=== PATIENT | female | born 1960 | race African-American/Black ===

== ENCOUNTER 2025-09-12 09:49 | Inpatient (IN) | payer OTHER, MEDICAID ==
[~2025-09-12] VITALS: Ht 167.6 cm; Wt 163.4 kg
[2025-09-12] VITALS (10 sets, daily range): BP systolic 117–159; BP diastolic 64–88; PULSE 86–107; RESP 16–20; TEMP 97.6–98.3; O2SAT 93–100
[2025-09-12] MEDS: methylPREDNISolone SOD SUCC 125 MG/2 ML VL IV ONE (10:15)
[2025-09-12] MEDS: MAGNESIUM SULFATE 1GM/100ML 100 ML IV ONE (10:15)
[2025-09-12] MEDS: FUROSEMIDE 40 MG/4 ML VIAL IV ONE (10:15)
--- NOTE | 2025-09-12 10:19 | ED.PDOC ---
History of Present Illness HPI Comments 64-year-old female came to the ER stating that she has been having shortness a breath for the past few weeks progressively getting worse. States that she can not even lie down without being short of breath. She does have a history of bilateral lower extremity swelling for which she takes Lasix. Apart from the swelling of her extremities she does have high blood pressure diabetes asthma. She has been using her inhaler without any help. Blood pressure on arrival was systolic blood pressure 220 with a heart rate of 106 saturation 91% on room air. She was placed on oxygen. Denies chest pain. Denies any other symptoms. 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 History Social History Smoker: Non-Smoker Alcohol: Denies ETOH Use Drugs: Denies Drug Use Constitutional: denies: chills, diaphoresis, fatigue, fever, malaise, sweats, weakness, others EENTM: denies: blurred vision, double vision, ear bleeding, ear discharge, ear drainage, ear pain, ear ringing, eye pain, eye redness, hearing loss, mouth pain, mouth swelling, nasal discharge, nose bleeding, nose congestion, nose pain, photophobia, tearing, throat pain, throat swelling, voice changes, others Respiratory: reports: shortness of breath; denies: cough, hemoptysis, orthopnea, SOB at rest, SOB with excertion, stridor, wheezing, others Cardiovascular: denies: chest pain, dizzy spells, diaphoresis, Dyspnea on exertion, edema, irregular heart beat, left arm pain, lightheadedness, palpitations, PND, syncope, others Gastrointestinal: denies: abdomen distended, abdominal pain, blood streaked bowels, constipated, diarrhea, dysphagia, difficulty swallowing, hematemesis, melena, nausea, poor appetite, poor fluid intake, rectal bleeding, rectal pain, vomiting, others Genitourinary: denies: abnormal vagina bleeding, burning, dyspareunia, dysuria, flank pain, frequency, hematuria, incontinence, pain, , vagina discharge, urgency, others Neurological: denies: dizziness, fainting, headache, left sided numbness, left sided weakness, numbness, paresthesia, pre-existing deficit, right sided numbness, right sided weakness, seizure, speech problems, tingling, tremors, weakness, others Musculoskeletal: denies: back pain, gout, joint pain, joint swelling, muscle pain, muscle stiffness, neck pain, others Integumetry: denies: bruises, change in color, change in hair/nails, dryness, laceration, lesions, lumps, rash, wounds, others Allergic/Immunocompromised: denies: Difficulty Healing, Frequent Infections, Hives, Itching, others Hematologic/Lymphatic: denies: anemia, blood clots, easy bleeding, easy bruising, swollen glands, others Endocrine: denies: excessive hunger, excessive sweating, excessive thirst, excessive urination, flushing, intolerance to cold, intolerance to heat, unexplained weight gain, unexplained weight loss, others Psychiatric: denies: anxiety, bipolar disorder, depression, hopeless, panic disorder, schizophrenia, sleepless, suicidal, others Physical Exam General Appearance: Normal, Severe Distress HEENT: Normal ENT Inspection, Pharynx Normal, TMs Normal Neck: Full Range of Motion, Non-Tender, Normal, Normal Inspection Respiratory: Accessory Muscle Use, Respiratory Distress, Wheezing Cardiovascular: Tachycardia Breast Exam: Deferred Gastrointestinal: No Organomegaly, Non Tender, No Pulsatile Mass, Normal Bowel Sounds, Soft Genitalia: Deferred Pelvic: Deferred Rectal: Deferred Extremities: No calf tenderness, Pedal edema, Swelling (Bilateral lower extremity) Musculoskeletal : Apperance: Normal Neurologic: Alert, vice president lending II-XII nml as Tested, No Motor Deficits, Normal Affect, Normal Mood, No Sensory Deficits Cerebellar Function: NOT DONE Reflexes: NOT DONE Skin: Normal Color Peripheral Pulses: 3+ Radial (R), 3+ Radial (L) Lymphatic: No Adenopathy Was a procedure done? Was a procedure done?: No EKG EKG : Pulse Rate (adult): 99 Cardiac Rhythm: NSR Differential Dx Considerations may include: Asthma exacerbation Electrolyte imbalance X-Ray, Labs, Meds, VS Vital Signs Date Time Temp Pulse Resp B/P (MAP) Pulse Ox O2 Delivery O2 Flow Rate FiO2 09/12/25 10:41 101 15 164/89 (114) 93 11/28/25 10:41 99 16 93 Nasal Cannula* 3 32 09/12/25 10:35 20 96 Nasal Cannula* 3 32 09/12/25 10:20 99 09/12/25 10:15 158/70 09/12/25 10:13 99 09/12/25 09:53 97.9 119 24 220/121 86 97.9 Lab Test 09/12/25 12:05 09/12/25 10:05 Range/Units Lactic Acid Level 1.7 2.7 *H 0.4-2.0 mmol/L White Blood Count 7.0 4.4-10.8 10^3/uL Red Blood Count 5.53 H 4.0-5.20 10^6/uL Hemoglobin 12.6 12.2-16.2 g/dL Hematocrit 40.7 36.0-46.0 % Mean Corpuscular Volume 73.6 L 80.0-100.0 fL Mean Corpuscular Hemoglobin 22.8 L 28.0-32.0 pg Mean Corpuscular Hemoglobin Concent 31.0 L 32.0-36.0 g/dL Red Cell Distribution Width 17.1 H 11.8-14.3 % Platelet Count 246 140-450 10^3/uL Mean Platelet Volume 8.2 6.9-10.8 fL Neutrophils (%) (Auto) 63.0 37.0-80.0 % Lymphocytes (%) (Auto) 28.1 10.0-50.0 % Monocytes (%) (Auto) 4.6 0.0-12.0 % Eosinophils (%) (Auto) 3.8 0.0-7.0 % Basophils (%) (Auto) 0.5 0.0-2.0 % Neutrophils # (Auto) 4.4 1.6-8.6 10 ^3/uL Lymphocytes # (Auto) 2.0 0.4-5.4 10 ^3/uL Monocytes # (Auto) 0.3 0-1.3 10 ^3/uL Eosinophils # (Auto) 0.3 0-0.8 10 ^3/uL Basophils # (Auto) 0 0-0.2 10 ^3/uL Nucleated Red Blood Cells 0.1 % Sodium Level 145 136-145 mmol/L Potassium Level 3.9 3.5-5.1 mmol/L Chloride Level 105 98-107 mmol/L Carbon Dioxide Level 30 20-31 mmol/L Anion Gap 10 5-15 Blood Urea Nitrogen 13 9-23 mg/dL Creatinine 0.77 0.550-1.02 mg/dL Glomerular Filtration Rate Calc 86 >90 mL/min BUN/Creatinine Ratio 16.9 10.0-20.0 Serum Glucose 146 H 74-106 mg/dL Calcium Level 9.4 8.7-10.4 mg/dL Total Bilirubin 0.4 0.2-1.0 mg/dL Aspartate Amino Transferase (AST) 26 13-40 U/L Alanine Aminotransferase (ALT) 24 7-40 U/L Alkaline Phosphatase 201 H 46-116 U/L Troponin I High Sensitivity 11 </=34 ng/L Total Protein 7.6 5.7-8.2 g/dL Albumin 4.4 3.2-4.8 g/dL Current Medications Medications (Trade) Dose Ordered Sig/Kera Route Start Time Stop Time Status Last Admin Methylprednisolone Sodium Succinate (Solu Medrol) 125 mg ONCE ONCE IV 09/12/25 10:15 09/12/25 10:16 DC 09/12/25 10:15 Albuterol (Ventolin Medneb) 5 mg ONCE ONCE NEB 09/12/25 10:15 09/12/25 10:16 DC 09/12/25 10:34 Ipratropium [place] (Atrovent Medneb) 0.5 mg ONCE ONCE NEB 09/12/25 10:15 09/12/25 10:16 DC 09/12/25 10:34 Furosemide (Lasix Injection) 40 mg ONCE ONCE IV 09/12/25 10:15 09/12/25 10:16 DC 09/12/25 10:15 Magnesium Sulfate/ Dextrose 100 ml @ 100 mls/hr ONCE ONCE IV 09/12/25 10:15 09/12/25 11:14 DC 09/12/25 10:15 Ceftriaxone Sodium 50 ml @ 100 mls/hr ONCE ONCE IV 09/12/25 11:30 09/12/25 11:59 DC 09/12/25 11:48 Azithromycin 250 ml @ 125 mls/hr ONCE ONCE IV 09/12/25 11:30 09/12/25 13:29 09/12/25 11:48 Patient alert. Complaining of shortness a breath. Vitals stable. Answering questions. Blood pressure elevated. Was given steroid. Was given Lasix. Placed on oxygen. Continue monitoring. Time of 1ST Reevaluation: 10:17 Reevaluation 1ST: Unchanged Patient Education/Counseling: Diagnosis, Treatment, Prognosis Family Education/Counseling: No Family Present SEPSIS Sepsis Screen Date sepsis recognized/suspect: Sep 12, 2025 Time Sepsis recognized/suspect: 954 Recent Procedure: No On Antibiotic Therapy: No Respiratory Rate >20: Yes Heart Rate >90: Yes Temp<36 C (96.8 F) or >38.3 C: No SBP <90 or MAP <65 mmHG: No New Acute Mental Status Change: No Is the patient on CPAP, BIPAP,: No Physician Orders Chest Portable (09/12/25 09:57) Electrocardigram (09/12/25 09:57) Blood Culture (09/12/25 09:57) Urinalysis (09/12/25 09:57) Azithromycin 500mg/250ml (Zithromax 500m (09/12/25 11:30) Vital Signs Date Time Temp Pulse Resp B/P (MAP) Pulse Ox O2 Delivery O2 Flow Rate FiO2 09/12/25 10:41 101 15 164/89 (114) 93 09/12/25 10:41 99 16 93 Nasal Cannula* 3 32 09/12/25 10:35 20 96 Nasal Cannula* 3 32 09/12/25 10:20 99 09/12/25 10:15 158/70 09/12/25 10:13 99 09/12/25 09:53 97.9 119 24 220/121 86 97.9 Laboratory Tests Test 09/12/25 10:05 09/12/25 12:05 Lactic Acid Level 2.7 mmol/L (0.4-2.0) *H 1.7 mmol/L (0.4-2.0) White Blood Count 7.0 10^3/uL (4.4-10.8) Medications Medications Dose Ordered Sig/Kera Route Start Time Stop Time Status Last Admin Dose Admin Albuterol 5 mg ONCE ONCE NEB 09/12/25 10:15 09/12/25 10:16 DC 09/12/25 10:34 Azithromycin 250 ml @ 125 mls/hr ONCE ONCE IV 09/12/25 11:30 09/12/25 13:29 09/12/25 11:48 Ceftriaxone Sodium 50 ml @ 100 mls/hr ONCE ONCE IV 09/12/25 11:30 09/12/25 11:59 DC 09/12/25 11:48 Furosemide 40 mg ONCE ONCE IV 09/12/25 10:15 09/12/25 10:16 DC 09/12/25 10:15 Ipratropium [place] 0.5 mg ONCE ONCE NEB 09/12/25 10:15 09/12/25 10:16 DC 09/12/25 10:34 Magnesium Sulfate/ Dextrose 100 ml @ 100 mls/hr ONCE ONCE IV 09/12/25 10:15 09/12/25 11:14 DC 09/12/25 10:15 Methylprednisolone Sodium Succinate 125 mg ONCE ONCE IV 09/12/25 10:15 09/12/25 10:16 DC 09/12/25 10:15 Departure 1 Departure Time of Disposition: 10:18 Impression: Primary Impression: Acute respiratory failure Qualified Codes: J96.01 - Acute respiratory failure with hypoxia Additional Impressions: Asthma exacerbation Qualified Codes: J45.901 - Unspecified asthma with (acute) exacerbation Hypertensive emergency Disposition: 09 ADMITTED INPATIENT Admit to: ICU Condition: Guarded Critical Care Note Critical Care Time?: Yes (90 min-critical care time only) Stability Stability form required: No Heart Score Heart Score: Heart Score Response (Comments) Value History Slightly Suspicious 0 EKG Normal 0 Age >65 2 Risk Factors >3 or Hx ASHD 2 Troponin Normal limit 0 Total 4 ORESTES DAWN MD Sep 12, 2025 10:19
[2025-09-12] MEDS: LABETALOL HCL 20 MG/4 ML VL IV ONE (10:30)
[2025-09-12] MEDS: IPRATROPIUM BROM 0.5 MG/2.5ML INH SOL NEB ONE (10:34)
[2025-09-12] MEDS: ALBUTEROL SULF 2.5 MG/0.5ML(0.5%) NEB SOLN NEB ONE (10:34)
[2025-09-12 10:39] LABS: Hematocrit 40.7 % (36.0-46.0); Hemoglobin 12.6 g/dL (12.2-16.2); Mean Corpuscular Hemoglobin 22.8 pg (28.0-32.0); Mean Corpuscular Volume 73.6 fL (80.0-100.0); Nucleated Red Blood Cells % 0.1 %
--- NOTE | 2025-09-12 10:47 | DVH ---
EXAM: XY CHEST PORTABLE Indication: shortness of breath Technique: Single frontal view of the chest was obtained Comparison: CR CHEST 2 VIEW on DOS: 10/04/24 FINDINGS: Lines and Tubes: None Lungs: Trace bilateral pleural effusions and pulmonary vascular congestion No pneumothorax. Cardiomediastinal contours: Cardiomegaly. Bones: No acute osseous abnormality. IMPRESSION: Cardiomegaly with trace bilateral pleural effusions and pulmonary vascular congestion.
[2025-09-12 11:10] LABS: Alanine Aminotransferase 24 U/L (7-40); Albumin 4.4 g/dL (3.2-4.8); Anion Gap 10 (5-15); BUN/Creatinine Ratio 16.9 (10.0-20.0); Blood Urea Nitrogen 13 mg/dL (9-23); Calcium 9.4 mg/dL (8.7-10.4); Carbon Dioxide 30 mmol/L (20-31); Chloride 105 mmol/L (98-107); Potassium 3.9 mmol/L (3.5-5.1); Sodium 145 mmol/L (136-145); Total Protein 7.6 g/dL (5.7-8.2)
[2025-09-12 11:11] LABS: Bilirubin, Total 0.4 mg/dL (0.2-1.0)
[2025-09-12 11:19] LABS: Alkaline Phosphatase 201 U/L (46-116); Glucose 146 mg/dL (74-106)
[2025-09-12 11:23] LABS: Lactic Acid w/Reflex 2.7 mmol/L (0.4-2.0)
[2025-09-12] MEDS: AZITHROMYCIN 500MG/250ML 250 ML IV ONE (11:48)
[2025-09-12] MEDS ORDERED: ONDANSETRON HCL 4 MG/2 ML VIAL IV PRN (15:00)
[2025-09-12] MEDS ORDERED: NITROGLYCERIN 0.4 MG SL TAB SL PRN (15:00)
[2025-09-12] MEDS ORDERED: HYDROcodone-ACET 5/325MG TAB PO PRN (15:00)
[2025-09-12] MEDS: methylPREDNISolone SOD SUCC 40 MG/ML VL IV SCH (15:00)
--- NOTE | 2025-09-12 15:10 | DVHHP2 ---
History of Present Illness Reason for Visit: Shortness of breaths since August 24. History of Present Illness 64-year-old female with a known history of chronic asthma, hypertension, congestive heart failure, diabetes mellitus type 2 currently on insulin pump, morbid obesity classIII presented to the hospital with a increasing shortness a breath found to have suspected acute as S1 exacerbation. Patient's denies any fevers chills cough or phlegm. Also complaining some leg swelling. Patient denies any chest pain. Cardiovascular: CHF, HTN, hyperipidemia Pulmonary: Asthma Endocrine: Diabetes Past Surgical History: None Smoke: No ALCOHOL: none Review of Systems Review of Systems Twelve review of system are negative besides mentioned above. Allergies: Coded Allergies: NO KNOWN ALLERGIES (Unverified , 09/12/25) Medications Current Medications Medications Dose Ordered Sig/Kera Route Start Time Stop Time Status Last Admin Dose Admin Acetaminophen/ Hydrocodone Bitart 1 tab Q4HP PRN PO 09/12/25 15:00 UNV Ondansetron HCl 4 mg Q4HP PRN IV 09/12/25 15:00 UNV Enoxaparin Sodium 40 mg DAILY SC 09/13/25 10:00 UNV Acetaminophen 650 mg Q6HP PRN PO 09/12/25 15:00 UNV Morphine Sulfate 2 mg Q4HPRN PRN IV 09/12/25 15:00 UNV Nitroglycerin 0.4 mg Q5MINP PRN SL 09/12/25 15:00 UNV Morphine Sulfate 2 mg Q30M PRN IV 09/12/25 15:00 UNV Albuterol 2.5 mg Q4HR NEB 09/12/25 18:00 UNV Methylprednisolone Sodium Succinate 40 mg Q8HR IV 09/12/25 15:00 UNV Exam Vital Signs Vital Signs Date Time Temp Pulse Resp B/P (MAP) Pulse Ox O2 Delivery O2 Flow Rate FiO2 09/12/25 15:04 87 20 158/55 (89) 93 09/12/25 10:41 Nasal Cannula* 3 32 09/12/25 09:53 97.9 97.9 Exam HEENT pupils are reactive Neck is supple CV is S1-S2 regular rate and rhythm Respiratory bilateral expiratory rhonchi GI positive bowel sound 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 Labs/Xrays Labs Test 09/12/25 12:05 09/12/25 10:05 Range/Units Lactic Acid Level 1.7 0.4-2.0 mmol/L White Blood Count 7.0 4.4-10.8 10^3/uL Red Blood Count 5.53 H 4.0-5.20 10^6/uL Hemoglobin 12.6 12.2-16.2 g/dL Hematocrit 40.7 36.0-46.0 % Mean Corpuscular Volume 73.6 L 80.0-100.0 fL Mean Corpuscular Hemoglobin 22.8 L 28.0-32.0 pg Mean Corpuscular Hemoglobin Concent 31.0 L 32.0-36.0 g/dL Red Cell Distribution Width 17.1 H 11.8-14.3 % Platelet Count 246 140-450 10^3/uL Mean Platelet Volume 8.2 6.9-10.8 fL Neutrophils (%) (Auto) 63.0 37.0-80.0 % Lymphocytes (%) (Auto) 28.1 10.0-50.0 % Monocytes (%) (Auto) 4.6 0.0-12.0 % Eosinophils (%) (Auto) 3.8 0.0-7.0 % Basophils (%) (Auto) 0.5 0.0-2.0 % Neutrophils # (Auto) 4.4 1.6-8.6 10 ^3/uL Lymphocytes # (Auto) 2.0 0.4-5.4 10 ^3/uL Monocytes # (Auto) 0.3 0-1.3 10 ^3/uL Eosinophils # (Auto) 0.3 0-0.8 10 ^3/uL Basophils # (Auto) 0 0-0.2 10 ^3/uL Nucleated Red Blood Cells 0.1 % Sodium Level 145 136-145 mmol/L Potassium Level 3.9 3.5-5.1 mmol/L Chloride Level 105 98-107 mmol/L Carbon Dioxide Level 30 20-31 mmol/L Anion Gap 10 5-15 Blood Urea Nitrogen 13 9-23 mg/dL Creatinine 0.77 0.550-1.02 mg/dL Glomerular Filtration Rate Calc 86 >90 mL/min BUN/Creatinine Ratio 16.9 10.0-20.0 Serum Glucose 146 H 74-106 mg/dL Calcium Level 9.4 8.7-10.4 mg/dL Total Bilirubin 0.4 0.2-1.0 mg/dL Aspartate Amino Transferase (AST) 26 13-40 U/L Alanine Aminotransferase (ALT) 24 7-40 U/L Alkaline Phosphatase 201 H 46-116 U/L Troponin I High Sensitivity 11 </=34 ng/L Total Protein 7.6 5.7-8.2 g/dL Albumin 4.4 3.2-4.8 g/dL SEPSIS Sepsis Screen Date sepsis recognized/suspect: Sep 12, 2025 Time Sepsis recognized/suspect: 954 Recent Procedure: No On Antibiotic Therapy: No Respiratory Rate >20: Yes Heart Rate >90: Yes Temp<36 C (96.8 F) or >38.3 C: No SBP <90 or MAP <65 mmHG: No New Acute Mental Status Change: No Is the patient on CPAP, BIPAP,: No Physician Orders Chest Portable (09/12/25 09:57) Electrocardigram (09/12/25 09:57) Blood Culture (09/12/25 09:57) Urinalysis (09/12/25 09:57) Admit (09/12/25 14:52) Code Status (09/12/25 14:52) 2 Gm Sodium Diet (09/12/25 Dinner) Hydrocodone-Acet 5/325mg Tab ([place] 5/32 (09/12/25 15:00) Ondansetron Hcl (Zofran) (09/12/25 15:00) Enoxaparin Sodium (Lovenox) (09/13/25 10:00) Condition: Stable (09/12/25 14:52) Acetaminophen Tablet (Tylenol Tablet) (09/12/25 15:00) Morphine Sulfate Injection (09/12/25 15:00) Nitroglycerin Sublingual (Ntrostat Subli (09/12/25 15:00) Morphine Sulfate Injection (09/12/25 15:00) Stat Ekg For Chest Pain (09/12/25 14:52) Notify Md Of Changes From Base (09/12/25 14:52) Financial Service Rep For 24 Hours (09/12/25 14:52) Emergency Dysrhythmia Protocol (09/12/25 14:52) Rhythm Strips Once Every Shift (09/12/25 14:52) Oxygen By Nasal Cannula (09/12/25 14:52) Albuterol Medneb (Ventolin Medneb) (09/12/25 18:00) Methylprednisolone Sod Succ (Solu Medrol (09/12/25 15:00) Vital Signs Date Time Temp Pulse Resp B/P (MAP) Pulse Ox O2 Delivery O2 Flow Rate FiO2 09/12/25 15:04 87 20 158/55 (89) 93 09/12/25 10:41 101 15 164/89 (114) 93 09/12/25 10:41 99 16 93 Nasal Cannula* 3 32 09/12/25 10:35 20 96 Nasal Cannula* 3 32 09/12/25 10:20 99 09/12/25 10:15 158/70 09/12/25 10:13 99 09/12/25 09:53 97.9 119 24 220/121 86 97.9 Laboratory Tests Test 09/12/25 10:05 09/12/25 12:05 Lactic Acid Level 2.7 mmol/L (0.4-2.0) *H 1.7 mmol/L (0.4-2.0) White Blood Count 7.0 10^3/uL (4.4-10.8) Medications Medications Dose Ordered Sig/Kera Route Start Time Stop Time Status Last Admin Dose Admin Albuterol 5 mg ONCE ONCE NEB 09/12/25 10:15 09/12/25 10:16 DC 09/12/25 10:34 5 MG Azithromycin 250 ml @ 125 mls/hr ONCE ONCE IV 09/12/25 11:30 09/12/25 13:29 DC 09/12/25 11:48 125 MLS/HR Ceftriaxone Sodium 50 ml @ 100 mls/hr ONCE ONCE IV 09/12/25 11:30 09/12/25 11:59 DC 09/12/25 11:48 100 MLS/HR Furosemide 40 mg ONCE ONCE IV 09/12/25 10:15 09/12/25 10:16 DC 09/12/25 10:15 40 MG Ipratropium [place] 0.5 mg ONCE ONCE NEB 09/12/25 10:15 09/12/25 10:16 DC 09/12/25 10:34 0.5 MG Magnesium Sulfate/ Dextrose 100 ml @ 100 mls/hr ONCE ONCE IV 09/12/25 10:15 09/12/25 11:14 DC 09/12/25 10:15 100 MLS/HR Methylprednisolone Sodium Succinate 125 mg ONCE ONCE IV 09/12/25 10:15 09/12/25 10:16 DC 09/12/25 10:15 125 MG Assessment/Plan Assessment/Plan 64-year-old female with a known history of chronic asthma, hypertension, insulin dependent diabetes mellitus type 2 currently on insulin pump, congestive heart failure presented to the hospital with the increasing shortness a breath found to have 1. Acute hypoxic respiratory failure secondary to acute asthma exacerbation 2. Acute asthma exacerbation 3. Hypertensive urgency 4. Diabetes mellitus type 2 insulin-dependent currently on insulin pump 5. Congestive heart failure unspecified not in exacerbation 6. Morbid obesity classIII -continue med nebs, O2 supplementation, Solu-Medrol, -we will assess for home oxygen requirement upon discharge. Plan discussed with: Patient My Orders Orders - NI BRICE MD Procedure Category Date Status Time Admit ADMIT 09/12/25 Transmitted 14:52 Code Status CODE 09/12/25 Transmitted 14:52 2 Gm Sodium Diet DIET 09/12/25 Transmitted Dinner Hydrocodone-Acet PHA 09/12/25 Logged 5/325mg Tab ([place] 15:00 Ondansetron Hcl PHA 09/12/25 Logged (Zofran) 15:00 Enoxaparin Sodium PHA 09/13/25 Logged (Lovenox) 10:00 Condition: Stable [facility] 09/12/25 In Process 14:52 Acetaminophen Tablet PHA 09/12/25 Logged (Tylenol Tablet) 15:00 Morphine Sulfate PHA 09/12/25 Logged Injection 15:00 Nitroglycerin PHA 09/12/25 Logged Sublingual (Ntrostat 15:00 Morphine Sulfate PHA 09/12/25 Logged Injection 15:00 Stat Ekg For Chest [facility] 09/12/25 In Process Pain 14:52 Notify Of Changes [facility] 09/12/25 In Process From Base 14:52 Financial Service Rep For [facility] 09/12/25 In Process 24 Hours 14:52 Emergency Dysrhythmia [facility] 09/12/25 In Process Protocol 14:52 Rhythm Strips Once [facility] 09/12/25 In Process Every Shift 14:52 Oxygen By Nasal RT 09/12/25 Transmitted Cannula 14:52 Albuterol Medneb PHA 09/12/25 Logged (Ventolin Medneb) 18:00 Methylprednisolone PHA 09/12/25 Logged Sod Succ (Solu Medrol 15:00 Problem List: (1) Acute respiratory failure (2) Asthma exacerbation Date of Service: Sep 12, 2025 Billing Provider: NI BRICE MD Common Visit Codes: NOT BILLABLE NI BRICE MD Sep 12, 2025 15:10
[2025-09-12] MEDS ORDERED: MORPHINE SULFATE 4 MG/ML SYR/VIAL IV PRN ×2 (15:30)
--- NOTE | 2025-09-12 15:50 | ECG ---
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
[2025-09-12] MEDS: ALBUTEROL SULF 2.5 MG/0.5ML(0.5%) NEB SOLN NEB SCH (19:22)
[2025-09-13] VITALS (22 sets, daily range): BP systolic 104–142; BP diastolic 48–88; PULSE 77–107; RESP 14–20; TEMP 97.8–99; O2SAT 93–100
[2025-09-13] MEDS: ACETAMINOPHEN 325 MG TAB PO PRN (06:00)
[2025-09-13] MEDS: ENOXAPARIN SOD 40 MG/0.4 ML SYRINGE SC SCH (11:48)
--- NOTE | 2025-09-13 15:07 | DVHPN2 ---
Subjective Patient has stated that she has 40% better. 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 Medications Current Medications Medications Dose Ordered Sig/Kera Route Start Time Stop Time Status Last Admin Dose Admin Acetaminophen/ Hydrocodone Bitart 1 tab Q4HP PRN PO 09/12/25 15:00 Ondansetron HCl 4 mg Q4HP PRN IV 09/12/25 15:00 Enoxaparin Sodium 40 mg DAILY SC 09/13/25 10:00 09/13/25 11:48 40 MG Acetaminophen 650 mg Q6HP PRN PO 09/12/25 15:00 09/13/25 06:00 650 MG Morphine Sulfate 2 mg Q4HPRN PRN IV 09/12/25 15:30 Nitroglycerin 0.4 mg Q5MINP PRN SL 09/12/25 15:00 Morphine Sulfate 2 mg Q30M PRN IV 09/12/25 15:30 Albuterol 2.5 mg Q4HR NEB 09/12/25 18:00 09/13/25 14:44 2.5 MG Methylprednisolone Sodium Succinate 40 mg Q8HR IV 09/12/25 15:00 09/13/25 05:59 40 MG Laboratory Results Laboratory Tests 09/12/25 10:05 Microbiology Microbiology Date/Time Source Procedure Growth Status 09/12/25 10:15 Blood Blood Culture - Preliminary NO GROWTH AFTER 24 HOURS OF INCUBATION. Resulted Assessment/Plan Assessment/Plan 64-year-old female with a known history of chronic asthma, hypertension, insulin dependent diabetes mellitus type 2 currently on insulin pump, congestive heart failure presented to the hospital with the increasing shortness a breath found to have 1. Acute hypoxic respiratory failure secondary to acute asthma exacerbation 2. Acute asthma exacerbation 3. Hypertensive urgency 4. Diabetes mellitus type 2 insulin-dependent currently on insulin pump 5. Congestive heart failure unspecified not in exacerbation 6. Morbid obesity classIII -continue med nebs, O2 supplementation, Solu-Medrol, -we will assess for home oxygen requirement upon discharge. Plan discussed with: Patient Problem List: (1) Acute respiratory failure (2) Asthma exacerbation Date of Service: Sep 13, 2025 Billing Provider: NI BRICE MD Common Visit Codes: NOT BILLABLE NI BRICE MD Sep 13, 2025 15:07
[2025-09-14] VITALS (23 sets, daily range): BP systolic 115–161; BP diastolic 66–86; PULSE 85–101; RESP 16–22; TEMP 97.7–98.2; O2SAT 94–100
--- NOTE | 2025-09-14 16:04 | DVHPN2 ---
Subjective Patient is still getting short of breath on minimal exertion currently on 1-2 L of oxygen by continuous nasal cannula. Changes from previous H/P or p: No Changes Objective Vitals Vital Signs Date Time Temp Pulse Resp B/P (MAP) Pulse Ox O2 Delivery O2 Flow Rate FiO2 09/14/25 13:58 99 18 100 09/14/25 13:53 Nasal Cannula 2.0 09/14/25 13:53 28 09/14/25 13:00 98.2 148/80 (102) 98.2 Intake/Output Intake and Output 09/14/25 07:00 Intake Total 1520 ml Balance 1520 ml Intake Oral 1520 ml # Voids 2 Exam HEENT pupils are reactive Neck is supple CV is S1-S2 regular rate and rhythm Bilateral respiratory rhonchi GI positive bowel sound Extremity trace edema [employer] no motor deficit Medications Current Medications Medications Dose Ordered Sig/Kera Route Start Time Stop Time Status Last Admin Dose Admin Acetaminophen/ Hydrocodone Bitart 1 tab Q4HP PRN PO 09/12/25 15:00 Ondansetron HCl 4 mg Q4HP PRN IV 09/12/25 15:00 Enoxaparin Sodium 40 mg DAILY SC 09/13/25 10:00 09/14/25 09:42 40 MG Acetaminophen 650 mg Q6HP PRN PO 09/12/25 15:00 09/14/25 09:40 650 MG Morphine Sulfate 2 mg Q4HPRN PRN IV 09/12/25 15:30 Nitroglycerin 0.4 mg Q5MINP PRN SL 09/12/25 15:00 Morphine Sulfate 2 mg Q30M PRN IV 09/12/25 15:30 Albuterol 2.5 mg Q4HR NEB 09/12/25 18:00 09/14/25 13:53 2.5 MG Methylprednisolone Sodium Succinate 40 mg Q8HR IV 09/12/25 15:00 09/14/25 14:31 40 MG Laboratory Results Laboratory Tests 09/12/25 10:05 Microbiology Microbiology Date/Time Source Procedure Growth Status 09/12/25 10:15 Blood Blood Culture - Preliminary NO GROWTH AFTER 48 HOURS OF INCUBATION. Resulted Assessment/Plan Assessment/Plan 64-year-old female with a known history of chronic asthma, hypertension, insulin dependent diabetes mellitus type 2 currently on insulin pump, congestive heart failure presented to the hospital with the increasing shortness a breath found to have 1. Acute hypoxic respiratory failure secondary to acute asthma exacerbation 2. Acute asthma exacerbation 3. Hypertensive urgency 4. Diabetes mellitus type 2 insulin-dependent currently on insulin pump 5. Congestive heart failure unspecified not in exacerbation 6. Morbid obesity classIII -continue med nebs, O2 supplementation, Solu-Medrol, -we will assess for home oxygen requirement upon discharge. Plan discussed with: Patient My Orders Orders - NI BRICE MD Procedure Category Date Status Time * Bootmaker Hand CONS 09/14/25 Transmitted Consult Date of Service: Sep 14, 2025 Billing Provider: NI BRICE MD Common Visit Codes: NOT BILLABLE NI BRCIE MD Sep 14, 2025 16:04
[2025-09-14] MEDS: LISINOPRIL 20 MG TAB PO SCH (22:30)
[2025-09-15] VITALS (22 sets, daily range): BP systolic 146–164; BP diastolic 73–81; PULSE 84–104; RESP 16–20; TEMP 97.1–98.3; O2SAT 90–100
[2025-09-15] MEDS ORDERED: CARV-214 OR (02:23)
[2025-09-15] MEDS ORDERED: KEP500T PO (02:23)
[2025-09-15] MEDS ORDERED: LISI10TA34 PO (02:23)
[2025-09-15] MEDS ORDERED: POTA-211 PO (02:23)
[2025-09-15] MEDS ORDERED: HYDR25TA4 PO (02:23)
[2025-09-15] MEDS ORDERED: INSUINJ37 SC (02:23)
[2025-09-15] MEDS ORDERED: FURO40TA4 PO ×2 (02:23→14:28)
[2025-09-15] MEDS ORDERED: SEMA4INJ SC (02:23)
[2025-09-15] MEDS ORDERED: LORA-622 PO (02:23)
[2025-09-15] MEDS ORDERED: INSU100I28 IJ (02:23)
[2025-09-15] MEDS ORDERED: PIOG1TAB36 OR (02:23)
[2025-09-15] MEDS ORDERED: ROSU20TA14 PO (02:23)
[2025-09-15] MEDS ORDERED: GLIP5TAB21 PO (02:23)
[2025-09-15] MEDS ORDERED: ALBU0.636 IN (02:23)
[2025-09-15] MEDS ORDERED: CLOP75TA70 PO (02:23)
[2025-09-15] MEDS ORDERED: FLUT1AER6 IN (02:23)
[2025-09-15] MEDS ORDERED: GUAI200T6 PO (02:23)
--- NOTE | 2025-09-15 12:42 | CONS ---
Pharmacy Clinical Information: From Heart Failure Fallout Report on CQM Application, My Jaeger is a 64 year old female with PMH of asthma, hypertension, congestive heart failure, diabetes mellitus type 2 currently on insulin pump, morbid obesity class III His home medication includes rosuvastatin 20mg Per 2024 ADA guidelines, for people with diabetes aged 4075 years at higher cardiovascular risk, including those with one or more additional ASCVD risk factors, high-intensity statin therapy is recommended. Please resume his home lipid lowering medication rosuvastatin 20mg if clinically appropriate Á[facility] Sep 15, 2025 12:42
[2025-09-15] MEDS ORDERED: IPR002IS HHN (14:28)
[2025-09-15] MEDS ORDERED: DOXY100C79 PO (14:28)
[2025-09-15] MEDS ORDERED: FLUT500M2 INH (14:28)
[2025-09-15] MEDS ORDERED: PRED20TA2 PO (14:28)
[2025-09-15] MEDS ORDERED: ALBU0.636 NEB (14:28)
--- NOTE | 2025-09-15 14:41 | DVHDS2 ---
Discharge Summary Date of Admission Sep 12, 2025 at 14:52 Date of Discharge: Sep 15, 2025 Admitting Diagnosis Labs/Diagnostic Data: Laboratory Results Test 09/12/25 12:05 09/12/25 10:05 Lactic Acid Level 1.7 mmol/L (0.4-2.0) White Blood Count 7.0 10^3/uL (4.4-10.8) Red Blood Count 5.53 10^6/uL (4.0-5.20) Hemoglobin 12.6 g/dL (12.2-16.2) Hematocrit 40.7 % (36.0-46.0) Mean Corpuscular Volume 73.6 fL (80.0-100.0) Mean Corpuscular Hemoglobin 22.8 pg (28.0-32.0) Mean Corpuscular Hemoglobin Concent 31.0 g/dL (32.0-36.0) Red Cell Distribution Width 17.1 % (11.8-14.3) Platelet Count 246 10^3/uL (140-450) Mean Platelet Volume 8.2 fL (6.9-10.8) Neutrophils (%) (Auto) 63.0 % (37.0-80.0) Lymphocytes (%) (Auto) 28.1 % (10.0-50.0) Monocytes (%) (Auto) 4.6 % (0.0-12.0) Eosinophils (%) (Auto) 3.8 % (0.0-7.0) Basophils (%) (Auto) 0.5 % (0.0-2.0) Neutrophils # (Auto) 4.4 10 ^3/uL (1.6-8.6) Lymphocytes # (Auto) 2.0 10 ^3/uL (0.4-5.4) Monocytes # (Auto) 0.3 10 ^3/uL (0-1.3) Eosinophils # (Auto) 0.3 10 ^3/uL (0-0.8) Basophils # (Auto) 0 10 ^3/uL (0-0.2) Nucleated Red Blood Cells 0.1 % Sodium Level 145 mmol/L (136-145) Potassium Level 3.9 mmol/L (3.5-5.1) Chloride Level 105 mmol/L (98-107) Carbon Dioxide Level 30 mmol/L (20-31) Anion Gap 10 (5-15) Blood Urea Nitrogen 13 mg/dL (9-23) Creatinine 0.77 mg/dL (0.550-1.02) Glomerular Filtration Rate Calc 86 mL/min (>90) BUN/Creatinine Ratio 16.9 (10.0-20.0) Serum Glucose 146 mg/dL (74-106) Calcium Level 9.4 mg/dL (8.7-10.4) Total Bilirubin 0.4 mg/dL (0.2-1.0) Aspartate Amino Transferase (AST) 26 U/L (13-40) Alanine Aminotransferase (ALT) 24 U/L (7-40) Alkaline Phosphatase 201 U/L (46-116) Troponin I High Sensitivity 11 ng/L (</=34) Total Protein 7.6 g/dL (5.7-8.2) Albumin 4.4 g/dL (3.2-4.8) Other Laboratory Tests 09/12/25 10:05 Brief Hx & Hospital Course: 64-year-old female with a known history of chronic asthma, hypertension, congestive heart failure, diabetes mellitus type 2 currently on insulin pump, morbid obesity classIII presented to the hospital with a increasing shortness a breath found to have suspected acute as S1 exacerbation. Patient's denies any fevers chills cough or phlegm. Also complaining some leg swelling. Patient denies any chest pain. She is admitted and underwent counseling and educated regarding diet exercise weight loss given her morbid obesity with a possible hypoventilation syndrome and underlying COPD/metabolic syndrome. While in the hospital patient treated for her exacerbation with IV steroids antibiotics nebulizer treatments and continued on diuretics. Patient is also underwent CHF education by me and advised to limit her oral fluid intake to 1 L per day. Otherwise overall patient is clinically stable not having any other issues. She is oxygenating normally on room air at rest however with activity she becomes hypoxemic therefore 2 L of home oxygen has been arranged. Patient is advised to continue her med nebulizer and continue other medications as she is prescribed. She is also advised to follow up with the PCP and have referral to [facility] inserter outpatient for sleep studies and evaluation of possible obesity hypoventilation syndrome. Patient verbalized understanding of her hospital diagnosis, treatment she received, discharge medications, discharge instructions and agree with the discharge follow-up plan of care as outlined. Condition at Discharge: Stable Final Diagnosis/Problems List 1. Acute hypoxic respiratory failure secondary to acute asthma exacerbation 2. Acute asthma exacerbation 3. Hypertensive urgency 4. Diabetes mellitus type 2 insulin-dependent currently on insulin pump 5. Congestive heart failure unspecified not in exacerbation 6. Morbid obesity classIII Discharge Disposition: Home Discharge Instruct/Medications Diet: Consistent carbohydrate, Cardiac 2g Na,low cholest Activity: No Restrictions, As Tolerated Follow Up/Referral: Primary care physician in 10-14 days and referral to [facility] inserter for sleep studies and evaluation of obesity hypoventilation syndrome and sleep apnea as well as management of COPD. Medications: As prescribed and home medications per discharge med reconciliation list Scheduled Albuterol Sulfate (Albuterol Sulfate), 2.5 MG NEB TID Clopidogrel Bisulfate (Clopidogrel), 75 MG PO DAILY, (Reported) Doxycycline (Monohydrate) (Doxycycline), 100 MG PO BID Fluticasone-Salmeterol (Advair Diskus 500/50), 1 PUFF INH BID Furosemide (Furosemide), 40 MG PO DAILY Glipizide (Glipizide), 1 TAB PO DAILY, (Reported) Hydrochlorothiazide (Hydrochlorothiazide), 25 MG PO DAILY, (Reported) Ipratropium [place] (Ipratropium [place]), 0.5 % HHN TID Lisinopril (Lisinopril), 10 MG PO ACHS, (Reported) Loratadine (Claritin), 1 TAB PO DAILY, (Reported) Prednisone (Prednisone), 40 MG PO BID Rosuvastatin Calcium (Crestor), 1 TAB PO DAILY, (Reported) Miscellaneous Medications Carvedilol (Coreg), 6.5 MG OR, (Reported) Fluticasone-Salmeterol (Wixela Inhub 250-50 Mcg/Dose), 1 AER IN, (Reported) Guaifenesin (Guaifenesin), 200 MG PO, (Reported) Insulin Aspart (Novolog), 100 UNIT IJ, (Reported) Insulin Aspart (Novolog), 100 UNIT IJ, (Reported) Insulin Glargine (Lantus Solostar), 100 UNIT SC, (Reported) Levetiracetam (Keppra Tablet), 500 MG PO, (Reported) Pioglitazone Hydrochloride (Pioglitazone Hcl), 15 MG OR, (Reported) Potassium Chloride (Klor-Con 10), 10 MEQ PO, (Reported) Semaglutide (Ozempic), 4 MG SC, (Reported) Discharge Statement: "Patient was advised to return to the ER or call 911 if any headaches, dizziness, shortness of breath, chest pain, abdominal pain, bleeding, fevers, or worsening of medical condition. Patient was counseled about treatment plan, medications, possible side effects, patientverbalized understanding. All questions were answered to the best of my ability. This discharge took greater then 30 minutes in planning, reviewing documentation, counseling the patient, and discussing with other team members." ASSESSMENT ASSESSMENT Assessment 1. Acute hypoxic respiratory failure secondary to acute asthma exacerbation 2. Acute asthma exacerbation 3. Hypertensive urgency 4. Diabetes mellitus type 2 insulin-dependent currently on insulin pump 5. Congestive heart failure unspecified not in exacerbation 6. Morbid obesity classIII TYRELL FLORES MD Sep 15, 2025 14:41
== END 2025-09-15 18:29 | disposition home or self-care (01) | DRG 189 ==
LOC: ER 09:49 → OVERFLOW 14:52 → TELE-EAST 18:05
PROVIDERS: ADMIT Hospitalist; ATTEND Hospitalist
DX: J96.01 Acute respiratory failure with hypoxia (principal); I50.9 Heart failure, unspecified; I16.0 Hypertensive urgency; I11.0 Hypertensive heart disease with heart failure; Z68.43 Body mass index [BMI] 50.0-59.9, adult; J45.21 Mild intermittent asthma with (acute) exacerbation; E11.9 Type 2 diabetes mellitus without complications; Z79.899 Other long term (current) drug therapy; E66.813 Obesity, class 3; Z96.41 Presence of insulin pump (external) (internal); Z79.4 Long term (current) use of insulin
CPT/HCPCS: 36415; 71045; 80053; 83605; 84484; 85025; 87040; 93005; 94640; 99291; 99292; G0378